=== PATIENT | female | born 1995 | race Caucasian/White ===

== ENCOUNTER 2023-10-11 10:24 | Emergency (ER) | payer OTHER ==
[2023-10-11 10:41] VITALS: RESP 18; TEMP 98.4; BMI 32.5
[2023-10-11] MEDS: SODIUM CHLORIDE 0.9% 500 ML INFUS.BAG IV ONE (11:47)
[2023-10-11 11:48] LABS: BASO % 0.5 % (0-2.0); EOS % 3.1 % (0-4.5); HEMATOCRIT 39.9 % (32.4-45.2); HEMOGLOBIN 13.7 GM/dL (10.7-15.3); LYMPH % 37.6 % (8-40); MCH 30.4 pg (25.7-33.7); MCHC 34.3 g/dl (32.0-36.0); MEAN CELL VOLUME 88.8 fl (80-96); MEAN PLT VOLUME 7.4 fl (7.5-11.1); NEUT % 53.8 % (42.8-82.8); PLATELET COUNT 294 10^3/uL (134-434); RDW 13.7 % (11.6-15.6); WHITE BLOOD COUNT 6.6 K/mm3 (4.0-10.0)
[2023-10-11 12:23] LABS: CALCIUM 9.2 mg/dL (8.5-10.1)
[2023-10-11 12:24] LABS: ALBUMIN 3.9 g/dl (3.4-5.0); BLOOD UREA NITROGEN 4.6 mg/dL (7-18)
[2023-10-11 12:27] LABS: CREATININE 0.5 mg/dL (0.55-1.3)
[2023-10-11 12:29] LABS: BILIRUBIN,TOTAL 0.5 mg/dL (0.2-1); TOT PROT 7.4 g/dl (6.4-8.2)
[2023-10-11 13:42] VITALS: BP 104/62; PULSE 71
== END 2023-10-11 14:47 | disposition home or self-care (01) ==
LOC: JER 10:24
DX: R42 Dizziness and giddiness (principal); R11.0 Nausea
CPT/HCPCS: 36415; 80053; 84484; 84703; 85025; 93005; 93010; 99284-25